=== PATIENT | female | born 1945 | race Caucasian/White ===

== ENCOUNTER 2017-04-28 17:52 | Emergency (ER) | payer MEDICARE ==
[~2017-04-28] VITALS: Ht 157.5 cm; Wt 74.0 kg
[~2017-04-28 17:52] MED LIST: ERYT400T4 PO; Z.0.NO CURRENT MEDS
[2017-04-28 18:05] VITALS: BP 131/66; PULSE 77; RESP 16; TEMP 99.1; O2SAT 97
--- NOTE | 2017-04-28 19:42 | PD ---
HPI Chief Complaint: Laceration/Skin Injury Time Seen by Provider: 18:20 Travel History International Travel<30 days: No Contact w/Intl Traveler<30days: No Traveled to known affect area: No History of Present Illness HPI 71-year-old female presents emergency department for evaluation of laceration to left lower extremity. Patient reports while walking through her mobile home her leg fell through a week portion of the wood floor cutting the anterior aspect. Patient reports normal sensation and movement of the lower extremity. She denies numbness/weakness/tingling in the extremity. [facility] Past Medical History Medical History: Denies Significant Hx Diminished Hearing: No Gastrointestinal Disorders: Yes (PERITONITIS) Past Surgical History Cholecystectomy: Yes Social History Alcohol Use: Yes (MODERATELY- BEER/WINE) Tobacco Use: No Substance Use: No Allergies-Medications (Allergen,Severity, Reaction): Coded Allergies: penicillin G (Unverified Allergy, Mild, RASH,ITCHING, 03/21/17) tetanus toxoid, adsorbed (Unverified Adverse Reaction, Mild, SWELLING AND REDNESS AT INJECTION SITE, 03/21/17) Reported Meds & Prescriptions Reported Meds & Active Scripts Active No Active Prescriptions or Reported Medications Review of Systems Except as stated in HPI: all other systems reviewed are Neg Physical Exam Narrative GENERAL: Well-nourished, well-developed patient. SKIN: Focused skin assessment warm/dry. HEAD: Normocephalic. EYES: No scleral icterus. No injection or drainage. NECK: Supple, trachea midline. No JVD or lymphadenopathy. CARDIOVASCULAR: Regular rate and rhythm without murmurs, gallops, or rubs. RESPIRATORY: Breath sounds equal bilaterally. No accessory muscle use. GASTROINTESTINAL: Abdomen soft, non-tender, nondistended. MUSCULOSKELETAL: No cyanosis, or edema. Left lower extremity: 20 cm laceration to the left anterior lower extremity. No vascular or tendon injury visualized. No foreign body visualized. Patient is able to fully flex and extend the left foot. 2+ distal pulses. Normal sensation within the extremity. Brisk cap refill. BACK: Nontender without obvious deformity. No CVA tenderness. Data Data Last Documented VS Vital Signs Date Time Temp Pulse Resp B/P (MAP) Pulse Ox O2 Delivery O2 Flow Rate FiO2 04/28/17 19:46 04/28/17 18:05 99.1 77 16 97 [facility] Medical Decision Making Medical Screen Exam Complete: Yes Emergency Medical Condition: Yes Differential Diagnosis Laceration of lower extremity, skin tear, contusion Narrative Course 71-year-old female with 20 cm laceration to the left anterior lower extremity. Extremities neurovascularly intact. No underlying vascular tendon injury. No foreign body identified on physical station. Wound was closed using sutures. Patient tolerated procedure well. Patient advised to elevate the extremity. Wound care discussed at length. Patient advised to follow up PCP for recheck next week. Patient verbalizes understanding and agrees to plan Procedures Procedure Narrative LACERATION LOCATION: Left lower extremity LENGTH: 20 cm NUMBER OF STITCHES/NORMA: He 1 REPAIR: The area of the laceration was prepped with Betadine and sterilely draped. The laceration was infiltrated with 1% lidocaine. The wound was copiously irrigated and explored without evidence of foreign body, tendon injury or neurovascular injury. The wound was closed using 3-0 Ethilon. This was a SINGLE layer repair. A sterile dressing was applied. The patient was advised to keep the dressing clean and dry. Patient tolerated the procedure well. Diagnosis Primary Impression: Laceration of left lower extremity Qualified Codes: S81.812A - Laceration without foreign body, left lower leg, initial encounter Referrals: Primary Care Physician Additional Instructions: Sutures need to be removed in 14 days. Watch the area with soap and water daily and apply clean dressing. Elevate the extremity. Follow-up with your doctor in 2-3 days for follow-up. Return to emergency department if he developed new or worsening symptoms such as increasing pain, redness, drainage from the site. Scripts No Active Prescriptions or Reported Meds Disposition: 01 DISCHARGE HOME Condition: Stable Smiley Aquino Apr 28, 2017 19:42
== END 2017-04-28 19:47 | disposition home or self-care (01) ==
LOC: PHEFT 17:52
DX: S81.812A Laceration without foreign body, left lower leg, initial encounter (principal); W45.8XXA Other foreign body or object entering through skin, initial encounter
CPT/HCPCS: 12005